=== PATIENT | female | born 1975 | race Caucasian/White ===

== ENCOUNTER → 2017-05-20 | Day surgery (SDC) | payer MEDICARE, OTHER ==
[~2017-05-20] VITALS: Ht 170.2 cm; Wt 84.2 kg
[~2017-05-20] MED LIST: FLONASE 50 MCG/16 GM NOSE; GEODON20 MG PO; GEODON80 MG PO; INDERAL10 MG PO; MOTRIN800 MG PO; PERCOCET 5-3251 EACH PO; REMERON 30 MG30 MG PO; TOPAMAX50 MG PO
--- NOTE | ~2017-05-20 | OR ---
PATIENT'S NAME: JULIAN ZHU [facility] AGE: 41 Y [address] ROOM: [place] [address] LOCATION: [facility] [place] DATE: 05/20/2017 OR/Procedure Report DISCHARGE DATE: FAMILY PHYSICIAN: Iva Em NP ATTENDING PHYSICIAN: Tila Galeana SURGEON: Tila Galeana MD SCIENTOLOGIST: DATE OF PROCEDURE: 05/20/2017 PREOPERATIVE DIAGNOSES: 1. Recurrent ovarian cyst. 2. Family history of ovarian cancer. POSTOPERATIVE DIAGNOSES: 1. Recurrent ovarian cyst. 2. Family history of ovarian cancer. PROCEDURE: Laparoscopic bilateral salpingo-oophorectomy. SCIENTOLOGIST SURGEON: None. ESTIMATED BLOOD LOSS: 10 mL. FINDINGS: Normal left tube and ovary. Right ovary with approximately 4 cm hemorrhagic cyst. Normal right tube. Normal uterus and normal appearing anatomy. INDICATIONS: This patient is a 41-year-old female with a history of pelvic pain with ovarian cyst. She also had a grandmother with ovarian cancer and opted for bilateral salpingo-oophorectomy. The risks, benefits, and alternatives to the procedure were discussed in detail. She understood the risks to be, but not to be limited to, bleeding, infection, damage to the bowel, bladder, ureter, and surrounding organs and desired to proceed. She understood that she would go into abrupt surgical menopause and that she would have menopausal symptoms. This was discussed in full in clinic. She understood that she would no longer be able to bear children. PROCEDURE IN DETAIL: The patient was taken to the operating room where anesthesia was found to be adequate. She was prepped and draped in dorsal lithotomy position. A time-out was performed. A weighted speculum was placed in the vagina. I was unable to place the uterine manipulator due to cervical stenosis, and therefore, a sponge stick was placed. The speculum was removed. Attention was turned to the patient's abdomen. The surgeon's gloves were changed. The Veress needle was introduced into the abdomen while tenting the abdominal wall. Intraperitoneal placement was confirmed with a drop in PATIENT'S NAME: JULIAN ZHU [facility] AGE: 41 Y [address] ROOM: [place] [address] LOCATION: [facility] [place] DATE: 05/20/2017 OR/Procedure Report DISCHARGE DATE: FAMILY PHYSICIAN: Iva Em NP ATTENDING PHYSICIAN: Tila Galeana pressure with insufflation of CO2 gas. The abdomen was insufflated. A 10 mm skin incision was then made infraumbilically and a port was introduced, a camera was introduced, and the above anatomy was surveyed. There were two additional ports placed under direct visualization; a 10 mm on the left and a 5 mm on the right. Lidocaine was injected to all of the sites. A 10 mm port was introduced on the left under direct visualization followed by a 5 mm on the right under direct visualization. A grasper was introduced into the abdomen, the right tube was grasped. LigaSure device was used to come across the IP ligament followed by the fallopian tube and removed the entire adnexa. The adnexa was then brought out through the EndoCatch bag and the full bag was removed via the 10 port, and it was noted that the bag was intact. This was done in the identical fashion on the left side making sure to come across the infundibulopelvic ligament and that hemostasis was noted and then across the tube and removing the entire adnexa, that was again placed in the EndoCatch bag which was brought out through the 10 port under direct visualization. The bag was then again surveyed to make sure that it was intact and it was. The abdomen was then surveyed, all anatomy was noted to be normal. As much air as possible was brought out through the patient's abdomen. All instruments were removed. Counts were correct. The skin was closed with 0 Vicryl suture and Steri-Strips were placed. COMPLICATIONS: None. CONDITION: Patient is stable. MD CHEPE VAN/christiane /[id number] d: 05/20/17 1642 t: 05/29/17 1056, OPERATIVE SUMMARY
[2017-05-20 08:54] LABS: BASOPHIL % 0.4 %; EOSINOPHIL # 0.4 K/uL (0.0-0.5); EOSINOPHIL % 4.2 %; HEMATOCRIT 42.6 % (33.0-46.0); HEMOGLOBIN 15.1 g/dL (10.0-15.0); IMMATURE GRANULOCYTE % 0.2 %; LYMPHOCYTE # 1.8 K/uL (0.8-4.0); LYMPHOCYTE % 20.6 %; MCH 35.3 pg (27.0-34.0); MCHC 35.4 gm/dL (32.0-36.5); MCV 99.5 fl (83.0-98.0); MONOCYTE # 0.5 K/uL (0.0-1.0); MONOCYTE % 5.3 %; MPV 9.7 fl (9.4-12.4); NEUTROPHIL # (ANC) 6.2 K/uL (1.8-7.8); NEUTROPHIL % 69.3 %; NRBC % 0 /100WBC (0-0.00); PLATELET COUNT 214 K/uL (150-450); RBC 4.28 M/uL (3.50-5.50); RDW-CV 11.5 % (11.9-14.6); WBC 8.9 K/uL (4.0-11.0)
[2017-05-20 09:14] LABS: ALBUMIN 3.7 gm/dL (3.5-5.0); CALCIUM 8.6 mg/dL (8.5-10.5); TOTAL BILIRUBIN 0.4 mg/dL (0.0-1.5); TOTAL PROTEIN 7.6 g/dL (6.0-8.4)
[2017-05-20 09:19] LABS: ANION GAP 8.9 (10.0-19.0)
[2017-05-20 09:20] LABS: POTASSIUM 3.9 mMol/L (3.7-5.1)
== END | disposition disaster alternative care site (69) ==
LOC: GPOC 05-14 09:00 → GSDC 07:00
PROVIDERS: Obstetrics & Gynecology
PROC: 0UT24ZZ Resection of Bilateral Ovaries, Percutaneous Endoscopic Approach (ICD-10-PCS; principal; 2017-05-20)
PROC: 0UT74ZZ Resection of Bilateral Fallopian Tubes, Percutaneous Endoscopic Approach (ICD-10-PCS; principal; 2017-05-20)
DX: N83.12 Corpus luteum cyst of left ovary (principal); N83.11 Corpus luteum cyst of right ovary; N83.292 Other ovarian cyst, left side; N83.291 Other ovarian cyst, right side; J45.909 Unspecified asthma, uncomplicated; F17.210 Nicotine dependence, cigarettes, uncomplicated; Z88.0 Allergy status to penicillin; Z88.1 Allergy status to other antibiotic agents; Z88.2 Allergy status to sulfonamides; Z90.49 Acquired absence of other specified parts of digestive tract; Z98.890 Other specified postprocedural states
CPT/HCPCS: J1100; J2001; J2405; J7120